=== PATIENT | male | born 1955 | race Caucasian/White ===

== ENCOUNTER 2019-02-18 06:56 | Inpatient (IN) | payer OTHER ==
[2019-02-09 12:22] VITALS: BMI 31.1
[~2019-02-18 06:56] MED LIST: CEFAZOLIN 2 GM in DEXTROSE 5%-WATER - 100 ML IVPB ONE
[2019-02-18] MEDS ORDERED: oxyCODONE HCL 10 MG SUSTAINED ACTING TABLET PO ONE (07:14)
--- NOTE | 2019-02-18 07:26 | HP ---
History & Physical Update - History History: No Change - Physical Physical: No Change - Assessment Assessment: No Change - Plan Plan: No Change (Initial H&P is located in patient's chart. It is complete/ accurate/UTD. No new complaints or medications. here today for elective TLIF L4/ 5. (LBP w/ RLE radiculopathy))
[2019-02-18] MEDS ORDERED: BUPIVACAINE LIPOSOME/PF (EXPAREL) 266 MG/20 ML VIAL ONE (07:44)
[2019-02-18] MEDS ORDERED: BUPIVACAINE HCL/PF 0.5% (5 MG/ML) 30 ML VIAL IJ ONE (07:44)
[2019-02-18] MEDS ORDERED: MIDAZOLAM HCL 2 MG/2 ML SINGLE DOSE VIAL ONE ×3 (07:44→09:19)
[2019-02-18] MEDS ORDERED: BUPIVACAINE HCL/PF 0.5% (5MG/ML) 10 ML VIAL ONE (08:13)
[2019-02-18 08:16] LABS: INR 1.08 (0.82-1.09); PROTHROMBIN TIME (PATIENT) 12.1 SEC (10.2-13.0)
[2019-02-18] MEDS ORDERED: ceFAZolin SODIUM 1 GM VIAL ONE (09:24)
[2019-02-18] MEDS ORDERED: DEXAMETHASONE SOD PHOSPHATE 4 MG/1 ML VIAL ONE (09:33)
[2019-02-18] MEDS ORDERED: ONDANSETRON 4 MG/2 ML VIAL ONE (09:33)
[2019-02-18] MEDS ORDERED: KETOROLAC TROMETHAMINE 30 MG/1 ML VIAL IVPUSH PRN (11:06)
[2019-02-18] MEDS ORDERED: ACETAMINOPHEN 1000 MG/100 ML VIAL (NON FORMULARY) IVPB PRN (11:06)
[2019-02-18] MEDS ORDERED: oxyCODONE HCL 5 MG TABLET PO PRN (11:11)
[2019-02-18] MEDS ORDERED: ONDANSETRON 4 MG/2 ML VIAL IVPUSH PRN (11:11)
[2019-02-18] MEDS ORDERED: ACETAMINOPHEN 325 MG TABLET (FP) PO SCH (11:15)
[2019-02-18] MEDS ORDERED: LACTATED RINGERS SOLUTION 1,000 ML IV SCH ×2 (11:15)
--- NOTE | 2019-02-18 11:15 | OP ---
Operative Note - Note: Operative Date: 02/18/19 Pre-Operative Diagnosis: Chronic LBP, bulging disc, RLE radiculopathy Operation: L4/5 TLIF, allograft implant, neuromonitoring Implants: as above. Post-Operative Diagnosis: Same as Pre-op Surgeon: Morgan Almazan R D Internship: Matti Can Anesthesiologist/SOFTWARE PUBLISHER: Lisa Huddleston Anesthesia: General, Spinal Specimens Removed: L4/5 disc Estimated Blood Loss (mls): 35 Fluid Volume Replaced (mls): 1,000 Operative Report Dictated: Yes
--- NOTE | 2019-02-18 11:16 | SURG ---
Surgery Corporate Counselor Note Corporate Counselor: Matti Can PA-C Date of Service: 02/18/19 Diagnosis: Chronic LBP, Herniated disc, RLE radiculopathy Procedure: Transforaminal lumbar interbody fusion / decompression / instrumentation, allograft implant, neuromonitoring I was present for the entirety of the operative procedure. For further detail, please refer to operative report. Visit type - Case Type Case Type: Scheduled - New patient This patient is new to me today: Yes Date on this admission: 02/18/19
--- NOTE | 2019-02-18 12:20 | OP ---
DATE OF OPERATION: 02/18/2019 PREOPERATIVE DIAGNOSES: 1. Spinal stenosis, L4-5. 2. Degenerative disk disease, L4-5. POSTOPERATIVE DIAGNOSES: 1. Spinal stenosis, L4-5. 2. Degenerative disk disease, L4-5. PROCEDURE PERFORMED: 1. Transforaminal lumbar interbody fusion, L4-5. 2. Placement of instrumentation, L4-5. 3. Placement of prosthetic cage. SURGEON: Morgan Almazan MD COMMERCIAL ACCOUNT MANAGER: ADAN Brady ESTIMATED BLOOD LOSS: 50 mL. INTRAVENOUS FLUIDS: Per anesthesia. ANESTHESIA: Spinal/TLIP block. COMPLICATIONS: There were none. DISPOSITION: Patient was brought to the PACU in stable condition. INDICATIONS FOR SURGERY: Patient is a 63-year-old gentleman who has been suffering from pain from his back down his legs. X-rays and MRI were completed, which noted that he had spinal stenosis at L4-5 secondary degenerative disk disease. He had gone through an exhaustive course of treatment for this, which included medications, physical therapy as well as injections. Unfortunately, his pain continued to persist despite all this. At this point, risks, benefits, alternatives were discussed, and the patient consented to surgery. DESCRIPTION OF PROCEDURE: Patient was brought to the operating room by anesthesia staff. After appropriate patient identification was performed, spinal anesthesia was given. A TLIP block was also given. Patient was able to position himself prone onto the OR table with all areas and bony prominences well padded at this time. Two needles were placed into his back to isaias off the L4-5 segments. X-ray was taken to confirm this was correct. Needle was removed. Marking lines were made to the L4 and L5 pedicles. His back was prepped and draped in a sterile manner. At this point, a time-out was completed. Incision was made bilaterally over the L4, L5 pedicles. Dissection was carried down to the fascia. Fascia was split open at this time, and appropriate retractor was then placed in. Using C-arm guidance, trocars were advanced to both the L4 and L5 pedicles. Through the trocars, a wire was inserted. Over the wire, tap was performed, and screws were inserted. On the right hand side, retractor blades were set up to expose the L4-5 facet joint. The facet joint was removed. The disk was entered using a series of pituitaries, Kerrisons, and curettes. A diskectomy was completed. The endplates were decorticated at this time. A cage filled with bone graft was placed in. Tulip heads were placed over the screws. A mike was measured and placed in. Caps were on, compression was applied. On the left hand side, a mike was measured and placed in. Caps were on, compression was applied. All extraneous instrumentation was removed at this time. AP and lateral x-ray confirmed the instrumentation to be in good position. The fascia was closed with a No. 1 Vicryl suture. Subcutaneous tissues were closed with 2-0 Vicryl suture. Skin was closed with 3-0 Monocryl suture. Dermabond was applied. Steri-Strips were applied. A sterile dressing was applied. Patient was placed supine on the OR bed, brought to the PACU in stable condition. Ana BACON/[id number]
[2019-02-18] MEDS ORDERED: oxyCODONE HCL 5 MG TABLET ONE (14:45)
[2019-02-18 15:58] VITALS: BP 132/90; PULSE 84; TEMP 97.9
[2019-02-18] MEDS ORDERED: CEFAZOLIN 2 GM/D5W 2 GM/50 ML ML IVPB ONE (16:30)
[2019-02-18] MEDS ORDERED: traMADol HCL 50 MG TABLET PO SCH (18:00)
[2019-02-18] MEDS ORDERED: diazePAM 2 MG TABLET PO SCH (22:00)
[2019-02-18] MEDS ORDERED: ATORVASTATIN CA 10 MG TABLET (FP) PO SCH (22:00)
== END 2019-02-18 15:58 | disposition home or self-care (01) | DRG 304 ==
LOC: FM/S 06:56
PROVIDERS: ADMIT Orthopaedic Surgery Orthopaedic Surgery of the Spine; ATTEND Orthopaedic Surgery Orthopaedic Surgery of the Spine
PROC: 0SB20ZZ Excision of Lumbar Vertebral Disc, Open Approach (ICD-10-PCS; 2019-02-18)
PROC: 4A11X4G Monitoring of Peripheral Nervous Electrical Activity, Intraoperative, External Approach (ICD-10-PCS; 2019-02-18)
PROC: 0SG00AJ Fusion of Lumbar Vertebral Joint with Interbody Fusion Device, Posterior Approach, Anterior Column, Open Approach (ICD-10-PCS; principal; 2019-02-18 09:00)
DX: M51.16 Intervertebral disc disorders with radiculopathy, lumbar region (principal); M48.061 Spinal stenosis, lumbar region without neurogenic claudication
CPT/HCPCS: 36415; 72100-TC-FY; 85610; 86803; 87389; 94760